=== PATIENT | female | born 1970 | race Caucasian/White ===

== ENCOUNTER → 2016-11-29 | Outpatient (CLI) | payer OTHER | LOC: BRMIMAGING 11:44 | PROVIDERS: ATTEND Family Medicine | DX: Z12.31 Encounter for screening mammogram for malignant neoplasm of breast (principal) | CPT/HCPCS: G0202 ==

== ENCOUNTER → 2017-12-01 | Outpatient (CLI) | payer OTHER | LOC: BRMIMAGING 10:52 | PROVIDERS: ATTEND Family Medicine | DX: Z12.31 Encounter for screening mammogram for malignant neoplasm of breast (principal) ==